=== PATIENT | male | born 1930 | race Caucasian/White ===

== ENCOUNTER 2018-03-08 12:22 | Inpatient (IN) | payer OTHER, MEDICARE ==
[~2018-03-08] VITALS: Ht 175.3 cm; Wt 88.5 kg
[2018-03-08 17:05] VITALS: BP 119/62
[2018-03-08] MEDS ORDERED: NORVASC5 M1 PO (17:36)
[2018-03-08] MEDS ORDERED: LOPRESSOR50 PO (17:37)
[2018-03-08] MEDS ORDERED: ZOFRAN ODT4 MG PO (17:37)
[2018-03-08] MEDS ORDERED: TIMOLOL GL0.5 %/5 M1 OPHTHALMIC (17:41)
[2018-03-08] MEDS ORDERED: KETOROLAC 0.5% E5 ML (17:42)
[2018-03-08] MEDS ORDERED: COZAAR 25 MG TA25 M1 PO (17:43)
[2018-03-08] MEDS ORDERED: GLUCOPHAGE1000 MG PO (17:44)
[2018-03-08] MEDS ORDERED: LIPITOR 20 MG T20 M1 PO (17:44)
[2018-03-08] MEDS ORDERED: ELIQUIS5 MG PO ×2 (17:45)
[2018-03-08] MEDS ORDERED: PACERONE 200 M200 M1 PO (17:45)
--- NOTE | 2018-03-08 19:00 | NUR ---
PT ADMITED TO REHAB ROOM 513 AT 1700 FROM [facility] WITH DX OF CVA LEFT SIDE WEAKNESS, HEMIANOPSIA. ALSO HAS HX OF HTN, AFIB, PRE DIABETIC. ON METFORMIN DAILY. ALERT AND ORIENTED X4, HAS LEFT SIDE WEAKNESS, TRANSFERED WITH 2 ASSIST. PHYSICIAN CONSULTS WERE CALLED. ADWOA REYES AND DR. ALVARENGA CAME TO SEE PT AND ASSESSED PT. ADMISSION MEDS RECONCILED AND VERIFIED WITH DR. ALVARENGA. REASSESSMENT PER CHART. PT C/O LEFT CHEST PAIN 09/24, HEADACHE /. CURRENTLY ON TYLENOL PRN AND ERIC ALSO GAVE ORDER FOR MELATONIN TO HELP PT TO SLEEP TONIGHT. SKIN ASSESSMENT. PICTURES TAKEN. NOTIFIED ERIC SHE SAID SHE WILL PUT CONSULT FOR WOUND NURSE. VSS ON RA. DISCUSSED WITH PT ABOUT REHAB SCHEDULED. PT ATE DINNER AND HAD BM TODAY BEFORE HE CAME. OFFERED SUPPORTIVE CARE. ENCOURAGE PT TO VOICE HIS NEEDS. PT'S GOALS ARE TO ABLE TO GET BETTER AND ABLE TO WALK AGAIN. ENCOURAGED PT TO WEAR SCD AT NIGHT TO PREVENT BLOOD CLOT. FALL PRECAUTION IN PLACE. GAVE REPORT TO NIGHT NURSE TO CONTINUE TO MONITOR.
[2018-03-08 19:37] VITALS: BP 141/68
--- NOTE | 2018-03-09 03:18 | NUR ---
assumed care at approx 1900 evening 03/08. pt lying in bed with head of bed elevated resting. pt appropriate and cooperative, denies complaints. pt took hs meds with water tolerating well. pt voiding per urinal at bedside. pt appears to be sleeping soundly with hourly rounding checks. bed alarm on and call light in reach. will continue to monitor.
[2018-03-09 04:11] LABS: MAGNESIUM 2.2 mg/dL (1.8-2.4); POTASSIUM 3.5 mmol/L (3.5-5.1)
[2018-03-09 04:16] LABS: CHOLESTEROL 106 mg/dL (<200); HDL CHOLESTEROL 44 mg/dL (>40); LDL CHOLESTEROL 50 mg/dL (<100); SERUM ASSESSMENT Clear; TC:HDL 2.4 Ratio (Not establshd); TRIGLYCERIDE 60 mg/dL (<150); VLDL 12 mg/dL (<40)
[2018-03-09 04:22] LABS: HEMATOCRIT 39.9 % (42.0-52.0); HEMOGLOBIN 13.9 gm/dL (14.0-18.0); MCH 34.8 pg (26.0-34.0); MCHC 34.8 g/dL (28.0-37.0); MCV 100.1 fL (80.0-100.0); RBC 3.98 mil/uL (4.50-6.00); RDW 14.3 % (10.5-14.5); WBC 7.2 thou/uL (4.0-11.0)
--- NOTE | 2018-03-09 08:15 | NUR ---
cm visited with pt this am, at bedside. pt is a & o x 3, with some forgetfulness, and pleasant. able to make his needs know. education on dcp, home health, and team meeting. pt reported " live home alone, 19 stairs with 1 side hand rail, don't check bs at home, still driving, manage own medication. 1 fall out of bed few weeks ago. ok with home health if needed. i am so weak and tired"/jose manuel. letting pt rest and will cont following as needed for dc needs.
[2018-03-09 10:17] VITALS: BP 150/83
--- NOTE | 2018-03-09 16:37 | NUR ---
ASSUMED CARE OF PT AT 0715. PT IS A&OX4. IS ON ROOM AIR. IS STABLE. DENIES PAIN. HAS LEFT SIDED WEAKNESS. IS ABLE TO LEFT ARM, BUT HAS LIMITED ROM. REPORTS PERIPHERAL DEFICITS. TRANSFERS WITH 1-2, MAX ASSIST, GB, STAND PIVOT. FALL PRECAUTIONS & HOURLY ROUNDING MAINTAINED. LABS & VITALS REVIEWED. PT IS CURRENTLY SLEEPING IN BED. CALL LIGHT WITHIN REACH. WILL CONTINUE TO MONITOR. PT HAS ACCU CHECKS ACHS. PT STATED, "I DON'T EAT MUCH". PT ONLY ATE BREAKFAST. REFUSED LUNCH. DAUGHTER IS AWARE & WAS AT BEDSIDE. FLUIDS ENCOURAGED. CONSENTS SIGNED & IS IN CHART. HOME EYE GTTS IN MED DRAWER.
[2018-03-09 19:06] LABS: GLYCOHEMOGLOBIN (HGB A1C) 5.9 % (4.8-5.6)
--- NOTE | 2018-03-09 19:26 | NUR ---
PT HOME EYE GTTS WERE SENT TO [facility] AND CONSENT ON LIFT. LIFT IS NOT WORKING. NOC NURSE AWARE.
[2018-03-09 20:05] VITALS: BP 118/71
--- NOTE | 2018-03-10 01:06 | NUR ---
PT ALERT AND ORIENTED X 4. VOIDS ADEQUATE AMTS CLEAR YELLOW URINE PER URINAL. LEFT SIDED WEAKNESS. PT TAKES MEDS WITH WATER WITHOUT DIFFICULTY. PT DENIES PAIN OR DISCOMFORT. BED ALARM ON FOR SAFETY. PT CHECKED ON HOURLY ROUNDS.
[2018-03-10 09:27] VITALS: BP 162/100
--- NOTE | 2018-03-10 14:01 | NUR ---
ASSUMED CARE AT 0700. PATIENT IS ALERT AND ORIENTED X4. PATIENT HAS LEFT SIDED WEAKNESS IN HIS LEFT LEG. PATIENT HAS LEFT UPPER FLACCIDITY. PATIENT HAS LEFT PERIPHERALVISION LOSS. LUNGS ARE CLEAR. ABD IS SOFT WITH BSX4. BMX3 TODAY. WILL CONTINUE TO HOLD LAXATIVES. FALL AND SAFETY PROTOCOLS IN PLACE. C/O BACK PAIN. PATIENT HAS VOLTARIN GEL FOR HIS BACK PAIN. CONTINUES TO PROGRES SLOWYLY TOWARD D/C GOALS. WILL CONTINUE TO MONITER.
--- NOTE | 2018-03-10 15:25 | NUR ---
DISCHARGE PLANNING: PATIENT'S DAUGHTER, NABILA LOPEZ, ASKED QUESTIONS ABOUT LENGTH OF STAY, AND DC PLAN. NOTED TO HER THAT THE TEAM WOULD MEET ON WEDNESDAY IN TEAM CONFERENCE TO DETERMINE A MORE SOLID DC PICTURE, BUT FOR NOW, OFFERED TO SHARE A TENTATIVE LENGTH OF STAY BASED ON DIAGNOSIS AND ADMIT FIM'S. SHE ASKED FOR A 'BALL-PARK' ESTIMATE, AND AFTER REVIEWING FIM AND ENTERING INTO THE SYSTEM, THE SUGGESTED LOS WAS 20 DAYS. NABILA STATED THAT THE PT LIVES ALONE IN A HOUSE WITH MANY STEPS WITHIN, AND WOULD NOT BE SAFE TO RETURN TO THAT PLACE, BUT FAMILY IS LOOKING INTO AL FACILITIES BOTH LOCAL AND IN THEIR DIFFERENT STATES. DTR STATED THAT SHE AND HER SIBLINGS ARE GOING TO BE LOOKING INTO WHAT THEIR OPTIONS ARE, AND THEY WILL NEED TO KNOW WHAT LEVEL OF CARE WE ANTICIPATE PT NEEDING IF ANY AFTER REHAB. SHE STATED THAT ALL OF THE PT'S CHILDREN WORK, THAT THE PT WOULD NOT BE RECEPTIVE TO A LIVE-IN 24/7 CAREGIVER, AND WAS HOPEFUL THAT AN AL WOULD BE APPROPRIATE AT [place]. NOTIFIED RAS LOPEZ, WHO WILL GIVE THEM INFORMATION ON LOCAL FACILITIES. ENCOURAGED DTR TO LOOK AT/TOUR FACILITIES FOR ASSISTED LIVING THAT ARE NEAR THEIR HOMES. GAVE THIS INFORMATION TO ECTOR UREÑA NP WELL.
--- NOTE | 2018-03-10 15:29 | NUR ---
cm notified by 5n unite complaint manager that daughter from [place] is here and had question rt dcp, [place], [place], because "family doesnt not want him going back home with all 19 steps at home, he just can not do them any more."/daughter. cm visited with camilo and daughter katarina at bedside, education on [place], [place], private duty, insurance does not cover, senior blue book and home health list choice provided " will check into this but he does not have means to cover if they are expensive and insurance doesn't cover them. well will talk as family, thank you"/katarina. will cont following as needed for dc needs.
[2018-03-10 20:05] VITALS: BP 129/79
--- NOTE | 2018-03-11 00:38 | NUR ---
PT ALERT AND ORIENTED X 4. LEFT SIDED WEAKNESS. VOIDS CLEAR YELLOW URINE PER URINAL. URINAL PLACED AND EMPTIED BY STAFF. BLOOD PRESSURE 129/79 AT HS. METOPROLOL HELD PER PARAMETERS. PT DENIES PAIN OR DISCOMFORT. BED ALARM ON FOR SAFETY. PT CHECKED ON HOURLY ROUNDS.
[2018-03-11 07:30] VITALS: BP 177/96
--- NOTE | 2018-03-11 09:19 | NUR ---
ASSUMED CARE AT 0700. B/P WAS 177/96 HR 62. GAVE SCHEDULED METOPROLOL AT 0800. RECHECK B/P AT 0900. B/P 136/92, HR 67. NOTIFIED ERIC SINCE LOSARTAN WAS NOT AVAILABLE AT 0800. ERIC REQUESTS TO HOLD LOSARTAN. PATIENT IS ALERT AND ORIENTED X3. FORGETFUL. PATIENT HAS LEFT SIDED WEAKNESS IN HIS LEFT LEG. PATIENT HAS LEFT UPPER FLACCIDITY. PATIENT HAS LEFT PERIPHERALVISION LOSS. LUNGS ARE CLEAR. ABD IS SOFT WITH BSX4. LAST BM WAS YESTERDAY. HELD MIRALAX THIS AM. FALL AND SAFETY PROTOCOLS IN PLACE. C/O BACK PAIN 8/10, HEADCHE 6/10 EARLIER. GAVE PRN HYDROCODONE. PAIN IS 5/10 NOW. PATIENT HAS VOLTARIN GEL FOR HIS BACK PAIN EALIER. CONTINUE TO TURN Q2HR WHILE IN BED. OFFERED SUPPORTIVE CARE. ENCOURAGED PT TO VOICE HIS NEEDS. LABS REVIEWED. REASSESSMENT PER CHART. MEDS GIVEN ORDER AND CONTINUE TO MONITOR B/P. CONTINUES TO PROGRESS SLOWYLY TOWARD D/C GOALS. WILL CONTINUE TO MONITOR.
[2018-03-11 20:22] VITALS: BP 131/75
--- NOTE | 2018-03-12 02:18 | NUR ---
assumed care at approx 1900 evening 03/11. pt sitting up in dining room at change of shift in w/c. pt assisted into bed and gown assist. pt sleeping soundly with hourly rounding checks. bed alarm instructional support services director light in reach. will continue to monitor.
[2018-03-12 07:30] VITALS: BP 175/96
[2018-03-12 14:00] VITALS: BP 138/76
--- NOTE | 2018-03-12 16:44 | NUR ---
ASSUMED CARE AT 0700. B/P WAS 175/96, HR 60 THIS AM. MORNING MEDS GIVEN. TOOK MEDS WITH APPLE SAUCE. PT ORIENTED X3. FORGETFUL. PATIENT HAS LEFT SIDED WEAKNESS IN HIS LEFT LEG. PATIENT HAS LEFT UPPER FLACCIDITY. PATIENT HAS LEFT PERIPHERALVISION LOSS. LUNGS ARE CLEAR. ABD IS SOFT WITH BSX4. HAD SOFT BM TODAY. HELD MIRALAX FALL AND SAFETY PROTOCOLS IN PLACE. C/O BACK PAIN 8/10 EARLIER. GAVE PRN 1/2 TAB HYDROCODONE. PAIN IS 5/10 NOW. PATIENT HAS VOLTARIN GEL FOR HIS BACK PAIN EALIER. PT IS STILL DROWSY. NOTIFIED WHO CAME AND ASSESS PT AND ORDERD FOR EKG AND TROPONIN. RESULTS NOTIFIED COLETTE RESULT. NO INDICATE OF CHEST PAIN. RECEIVED ORDER TO D/C NORCO AND CHANGE TO TRAMADOL. AND MAKE SOME CHANGE ABOUT MEDICATIONS FOR PT NEEDS. TREATMENT DISCUSSED WITH FAMILY. CONTINUE TO TURN Q2HR WHILE IN BED. PT HAD BM TODAY. OFFERED SUPPORTIVE CARE. ENCOURAGED PT TO VOICE HIS NEEDS. LABS REVIEWED. REASSESSMENT PER CHART. MEDS GIVEN ORDER AND CONTINUE TO MONITOR B/P. B/P IS 138/76, HR 58. CONTINUES TO PROGRESS SLOWYLY TOWARD D/C GOALS. WILL CONTINUE TO MONITOR.
[2018-03-12 17:39] LABS: URINE BILIRUBIN NEGATIVE (Negative); URINE BLOOD NEGATIVE (Negative); URINE CLARITY CLEAR; URINE COLOR YELLOW; URINE GLUCOSE-RANDOM* NEGATIVE (Negative); URINE KETONES NEGATIVE (Negative); URINE LEUKOCYTES-REFLEX NEGATIVE (Negative); URINE NITRITE-REFLEX NEGATIVE (Negative); URINE PROTEIN (DIPSTICK) NEGATIVE (Negative); URINE UROBILINOGEN 0.2 E.U./dl (0.2-1.0)
[2018-03-12 19:35] VITALS: BP 108/66
--- NOTE | 2018-03-13 01:58 | NUR ---
assumed care at approx 1900 evening 03/12. pt alert and oriented x4, appropriate and cooperative sitting at dining table at change of shift visiting with family. pt wanted to get to bed shortly after family left and has been sleeping soundly. pt took hs meds with water tolerating well. bed alarm on and call light in reach. will continue to monitor.
[2018-03-13 09:30] VITALS: BP 112/65
--- NOTE | 2018-03-13 11:51 | NUR ---
ASSUMED PT CARE AT 0700. ASSESSMENT COMPLETE AD IS CHARTED AT 0930. VITAL SIGNS STABLE. PT FOUND SLEEPING IN BED WITH BREAKFAST UNTOUCHED. WOKE PT TO FINISH EATING. PT ALERT/ORIENTED X4. REPORTS BACK PAIN RATED 6/10. STATES TRAMDOL DOES NOT HELP AND REFUSES MEDICATION AT THIS TIME. HEMIPALEGIA NOTED TO LEFT SIDE. PT IS ABLE TO RAISE ARM AND LEG, BUT IS WEAK. NO OTHER CONCERNS AT THIS TIME. WILL CONTINUE WITH CURRENT CARE.
--- NOTE | 2018-03-13 16:27 | NUR ---
PT DOING BETTER THIS AFTERNOON. MORE AWAKE THAN THIS MORNING. GOT PT UP TO CHAIR WITH MAX 2 PERSON ASSIST. PT REPORTS HAVING NO APPETITE; NOTHING LOOKS GOOD AND EVERYTHING IS BLAND. PT UNABLE TO HAVE REAL SALT HE IS ON CARDIAC DIET. FAMILY BROUGHT SALT SUBSTITUTE AND SALAD FOR PT WHICH HE ATE ABOUT HALF OF. PT SEEMS IN BETTER SPIRITS THIS AFTERNOON AFTER GETTING SOME FOOD AND VISITING FAMILY. WILL CONTINUE MONITOR AND CURRENT CARE.
[2018-03-13 19:28] VITALS: BP 105/60
--- NOTE | 2018-03-13 19:33 | HC ---
[facility] [place] [address] CONSULTATION Name: DEBBIE BANUELOS Room #: 513-P ADM IN M.R.#: [id number] Admission: 03/08/18 Attend Phys: Milton Mitchell MD Discharge: Date of : 07/28/[birth year] Report #: [id number] THIS REPORT FOR: //name// CC: Milton Camacho DATE OF SERVICE: 03/12/2018 Neurobehavioral Status Exam ATTENDING PHYSICIAN: Milton Mitchell MD SEWING MACHINE OPERATOR SEMIAUTOMATIC: Angel Luis Fox, PhD CLINICAL PRESENTATION: The patient is an 87-year-old male admitted to the rehabilitation unit at [facility] for comprehensive inpatient rehabilitation program to improve functional mobility, activities of daily living and self-care and mental status secondary to a right parietal occipital CVA. He presents with a left hemiparesis, left homonymous hemianopsia, left-sided kenyon-inattention, non-ST elevation myocardial infarction, mild rhabdomyolysis, hypertension, hyperlipidemia, history of paroxysmal atrial fibrillation and peripheral artery disease with history of abdominal aortic aneurysm. The patient reports being at his home when he fell off his bed. A female peer could not reach him and subsequently went to the house and then required emergency services for transfer to the hospital. He is reported to have been down approximately 6 hours. Neuropsychological consultation was requested to provide assistance in the assessment of cognitive and emotional status and to provide recommendations and services. Prior to his most recent admission, he was living independently in his own home. His from cancer about 5 years ago. The patient was independent with instrumental activities of daily living and driving. He is a high school graduate. 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 He has three children that are reported as supportive, but do not live within his same proximity. TECHNIQUES UTILIZED: Clinical interview, review of medical records, staff consultation and behavioral observation, Mini-Mental Status Exam 2 standard version, family interview. EXAMINATION FINDINGS: His functioning during the assessment was very poor. The use of narcotic pain medication was reported to have been administered and likely contributed to a [facility] [address] [place] [address] CONSULTATION Name: BANUELOSDEBBIE Room #: 513-P [facility] IN M.R.#: [id number] Admission: 03/08/18 Attend Phys: Milton Mitchell MD Discharge: Date of : 07/28/30 Report #: [id number] temporary deterioration in functioniong. The patient required encouragement to maintain alertness during the assessment. He often had his eyes closed and required encouragement to open them. He does present with a severe left neglect. He reports symptoms to include memory, word finding, anxiety, depression and difficulty with appetite and sleep. Pain in his stomach is also reported. He does not have a history of prior treatment for depression or anxiety. There is also no report of previous alcohol use. However, the patient is reporting significant symptoms suggesting depression and anxiety at this time. His performance on the MMSE 2 brief version is extremely low with a raw score of 8 of 16. He was 3/3 for initial registration, 3/5 for orientation to time, 3/[address] and 0/3 for immediate recall of 3 items after a brief time delay and distraction. Performance on the MMSE 2 standard version is extremely low with a raw score of 16 of 30. He was 0/5 for serial 7s, 2/2 for naming, 1/1 for repetition, 3/3 for auditory comprehension. He could read and follow a single command when the stimulus is within his visual field. The patient required encouragement to move his head in the direction visual stimulation. He did not spontaneously attempt to find the target. He is somewhat passive and taking less initiative at this time. He was able to dictate a sentence. The patient does describe continued sadness over the loss of his . At this time, the patient is presenting with severe cognitive deficits that are likely associated with delirium. Decreased initiative and symptoms of anxiety and depression are suggested. 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 RECOMMENDATIONS: The patient will require continual encouragement to maintain attention in the appropriate visual field. He is not taking initiative at this time. Encouragement to take initiative when necessary that includes calling for nursing and therapy assistance when necessary. The patient may benefit from antidepressant medication, example Remeron, to both assist with sleep at night, as well as improve appetite. Verbal praise and complements about participation in therapies will also be of benefit. Additionally, it is necessary to arrange objects in the room to be within his field of vision. [address] [address] CONSULTATION Name: DEBBIE BANUELOS Room #: 513-P [facility] IN .R.#: [id number] Admission: 03/08/18 Attend Phys: Milton Mitchell MD Discharge: Date of : 07/28/[birth year] Report #: [id number] Thank you very much for allowing me to provide the consultation on this patient. <ELECTRONICALLY SIGNED> By: Angle Luis Fox, PhD 03/13/18 1933 [id number] 0151 Angel Luis Fox, PhD /nt
--- NOTE | 2018-03-14 02:24 | NUR ---
PT ALERT AND ORIENTED X 4. VOIDING ADEQUATE AMTS PER URINAL. NEEDS ASSISTANCE WITH URINAL PLACEMENT. LEFT SIDED WEAKNESS. PT C/O LEFT SIDED CHEST PAIN. STATED HE FELL ON THAT SIDE WHEN HE HAD HIS STROKE AND IT HAS BEEN PAINFUL EVER SINCE. TRAMADOL NOT GIVEN SINCE DAY NURSE STATED TRAMADOL KNOCKED HIM OUT TOO MUCH. MELATONIN GIVEN AT HS FOR SLEEP. PT APPEARS TO BE SLEEPING ON HOURLY ROUNDS.
[2018-03-14 07:45] VITALS: BP 98/59
--- NOTE | 2018-03-14 08:41 | EKG ---
[place] [address] [facility] [place] [address] ELECTROCARDIOGRAM REPORT Name: DEBBIE BANUELOS Room #: 513-P ADM IN M.R.#: [id number] Admission: 03/08/18 Attend Phys: Milton Mitchell MD Discharge: Date of : 07/28/30 Report #: [id number] THIS REPORT FOR: //name// [facility] Test Date: 2018-03-12 Test Time: 15:41:34 Pat Name: DEBBIE BANUELOS Department: Room: 513 P Gender: M Artificial Cherry Maker: : 1930 Requested By: Esdras Singh Order Number: [id number] MD: Dheeraj Beckett Measurements Intervals [place] Rate: 62 P: 38 DE: 280 QRS: -20 QRSD: 156 T: -13 QT: 496 QTc: 504 Interpretive Statements Sinus rhythm Prolonged DE interval Right bundle branch block No previous ECG available for comparison Electronically Signed On 03-14-2018 8:41:05 MANAGER OF DISASTER RECOVERY by Dheeraj Beckett [email or web address] <ELECTRONICALLY SIGNED> By: Dheeraj Beckett MD, [facility] 03/14/18 0841 [id number] Dheeraj Beckett MD, FACC /EPI
--- NOTE | 2018-03-14 19:02 | NUR ---
ASSUMED CARE AT APPROX 0715. PATIENT A/O X4. DENIES PAIN. LEFT HEMIPARESIS. UP TO WC FOR MEALS. ST CONSULTED FOR DYSPHAGIA. PATIENT C/O URGENCY, INABILITY TO VOID. PVR SHOWED 120 ML OUT, 130 ML RETAINED. PATIENT UP X MAX ASSIST OF 2 PERSONS FOR TRANSFERS AND TOILETING, EVEN WITH URINAL. FALL PRECAUTIONS IN PLACE. PATIENT'S FAMILY MEMBER AT BEDSIDE. PATIENT UP IN RECLINER AFTER DINNER. FALL PRECAUTIONS IN PLACE. RESTING IN ROOM AT CHANGE OF SHIFT.
[2018-03-14 20:35] VITALS: BP 136/86
--- NOTE | 2018-03-15 01:33 | NUR ---
PT ALERT AND ORIENTED X 4. VOIDS SMALL AMTS CLEAR YELLOW URINE PER URINAL. INCONT OF URINE AT TIMES ALSO. VOIDED 50 ML URINE AT 2230. BLADDER SCAN 135 AT THAT TIME. LEFT SIDED WEAKNESS. PT TOOK HS MEDS WITH WATER WITHOUT DIFFICULTY. NO COUGHING NOTED. PT C/O PAIN IN LEFT CHEST. TYLENOL GIVEN ORDERED. BED ALARM ON FOR SAFETY. PT CHECKED ON HOURLY ROUNDS.
--- NOTE | 2018-03-15 06:00 | NUR ---
INCONT OF URINE IN LARGE AMT. BLADDER SCAN 255.
[2018-03-15 08:19] VITALS: BP 113/71
--- NOTE | 2018-03-15 12:39 | NUR ---
team meeting, recommendation, re team , possible dc 03/28/18.
--- NOTE | 2018-03-15 12:41 | NUR ---
team meeting, recommendation : re team, dme drop arm commode, wheel chair with lap board, and shower chair, and home health at [place]. current diet puree with honey thick. ok for daughter, son in law and son who spends night some times is a transfer pt from bed to wheel
--- NOTE | 2018-03-15 15:24 | NUR ---
ASSUMED PT CARE AT 0700. NIGHT RN BS EARLIER PT HAD 225 CC. PT REQUESTED TO ASSISTED TO BSC. HAD 300CC CLEAR URINE OUT, BS O AT THIS MOMENT. OBTAINED ORDER TO D/C BS. PT ALERT AND ORIENTED X 3 FORGETFUL. LEFT SIDED WEAKNESS. UP WITH MAX ASSIST. PT TOOK HS MEDS WITH WATER WITHOUT DIFFICULTY. NO COUGHING NOTED. PT C/O PAIN IN LEFT CHEST. NOTIFIED ERIC TO INCREASE TYLENOL TO 1000MG. GIVEN ORDERED. PT HAD 2X LOOSE BM. WILL ASK ON COMING NURSE TO HOLD COLACE. PT CHECKED ON HOURLY ROUNDS. PT UP TO DINNING ROOM FOR MEALS. ST DOWN GRADE PT TO [facility] SOFT TO HELP WITH CHEWING. MOVE PT TO ROOM TO [facility] FOR BETTER BATHROOM AND FOR ANOTHER PATIENT WHO NEEDS CLOSE OBSERVATION. FAMILY WAS NOTIFIED. PT IS OK TO MOVE. FALL PRECAUTION IN PLACE. BED/CHAIR ALARM USES. CALL LIGHT WITHIN REACH. CHECK PT FREQUENTLY FOR NEEDS AND SAFETY.
[2018-03-15 20:16] VITALS: BP 150/80
--- NOTE | 2018-03-16 04:41 | NUR ---
REPOSITIONING SELF IN BED. USING URINAL WITH VERY LITTLE SPILLAGE. APPRECIATES FRESH PAD AND GABO-CARE. STATES LEFT ARM PAIN SINCE CVA AND APPRECIATES TRAMADOL FOR IT.
[2018-03-16 07:30] VITALS: BP 146/85
--- NOTE | 2018-03-16 14:13 | NUR ---
Patient participated in community reintegration on 03/16/18 with Speech Therapy. Refer to documentation by
--- NOTE | 2018-03-16 15:00 | NUR ---
mynor manage visited with pt daughter katarina and pt rt family question. pt and family planning on taking him to [place] either assisted living vs skilled. if pt goes snf in [place] will dc 11th and if family found him assisted living he will dc week later. he will need new pcp for hh if goes al. cm passed on to family that there is [facility] here and in [place], liaison might be able to answer question for her up here. will cont following as needed for dc needs.
--- NOTE | 2018-03-16 16:37 | NUR ---
Pt PARTICIPATED IN COMMUNITY REINTEGRATION ACTIVITY WITH ST ON 03/16/18. PLEASE REFER TO ST DOCUMENTATION.
--- NOTE | 2018-03-16 17:00 | NUR ---
ASSUMED CARE AT APPROX 0715. PATIENT A/O X3. FORGETFUL AT TIMES, SLOW TO RESPOND, NEEDING INSTRUCTIONS REPEATED MODERATELY. VSS. L HEMIPARESIS NOTED. PARTICIPATING IN THERAPY. VOLTAREN GEL APPLIED TO LEFT ARM/SHOULDER AND TO BACK. KETOROLAC EYEDROPS CHANGED TO PRN FOR PAIN. FALL PRECAUTIONS IN PLACE. PATIENT UP IN WHEELCHAIR BETWEEN THERAPIES. WILL CONTINUE TO MONITOR.
[2018-03-16 19:15] VITALS: BP 137/80
--- NOTE | 2018-03-17 04:01 | NUR ---
assumed care at approx 1900 evening 03/16. pt lying in bed with head of bed elevated dozing off and on. pt assisted up to w/c to bathroom to void before hs. pt took hs meds with water tolerating well. pt appears to be sleeping soundly with hourly rounding checks. bed alarm on and call light in reach. will continue to monitor.
[2018-03-17 06:49] LABS: ABSOLUTE NEUTROPHILS 4.1 thou/uL (1.4-8.2); BASOPHILS 1.3 % (0.0-2.0); EOSINOPHILS 3.6 % (0.0-3.0); HEMATOCRIT 39.1 % (42.0-52.0); HEMOGLOBIN 13.3 gm/dL (14.0-18.0); LYMPHOCYTES 30.5 % (24.0-44.0); MCH 33.9 pg (26.0-34.0); MCHC 34.1 g/dL (28.0-37.0); MCV 99.4 fL (80.0-100.0); MONOCYTES 9.4 % (1.0-8.0); PLATELET COUNT 166 thou/uL (150-400); POLYS 55.2 % (36.0-66.0); RBC 3.94 mil/uL (4.50-6.00); RDW 14.2 % (10.5-14.5); WBC 7.4 thou/uL (4.0-11.0)
[2018-03-17 07:10] LABS: MAGNESIUM 1.6 mg/dL (1.8-2.4); POTASSIUM 3.8 mmol/L (3.5-5.1)
[2018-03-17 08:34] VITALS: BP 136/76
[2018-03-17 19:45] VITALS: BP 142/79
--- NOTE | 2018-03-17 19:56 | NUR ---
ASSUMED CARE AT APPROX 0715. PATIENT A/O X4. C/O PAIN IN MID-LOWER BACK AND LEFT ARM AND SHOULDER. VOLTAREN GEL APPLIED. PATIENT DENIED NEED FOR OTHER PAIN MEDS. UP X1 MAX ASSIST. PARTICIPATED IN THERAPY. VSS. LABS REVIEWED. MAGNESIUM REPLACED PER ORDRES. FALL PRECAUTIONS IN PLACE. PATIENT UP TO WC FOR MEALS. RESTING IN HIS ROOM, DAUGHTER AND SON-IN-LAW AT BEDSIDE AT CHANGE OF SHIFT.
--- NOTE | 2018-03-18 02:58 | NUR ---
VOIDING PER URINAL WITH STAFF HELPING TO KEEP IT IN PLACE. VOLTAREN GEL TO LEFT SHOULDER HELPFUL FOR PAIN.
[2018-03-18 09:20] VITALS: BP 148/86
--- NOTE | 2018-03-18 11:58 | NUR ---
Nutrition: pt admit to rehab unit with parieto-occipital CVA and seen due to LOS on rehab unit. Pt reports stable weights. Intake if good, eats most of meals. Followed by ST, requires mechanically altered chopped diet. Low risk.
--- NOTE | 2018-03-18 15:36 | NUR ---
ASSUMED CARES AT 0700. PT ALERT AND ORIENTED *4. C/O LOW BACK, LEFT CHEST (NON-CARDIAC) AND LEFT SHOULDER PAIN, VOLTAREN GEL APPLIED AND PT STATED THAT THERE WAS A DECREASE IN PAIN. VITALS REMAINED STABLE. PT CONTINUES TO HAVE LEFT SIDED WEAKNESS, ABLE TO MOVE EXTREMITY. TOE LACERATION ON LEFT LEG HEALING, CLEANED AND LEFT SHELVER. PT UP WITH 1 PERSON PIVOT TRANSFERS AND TOLERATED WELL. Q1H VISUAL CHECKS. CALL LIGHT WITHIN REACH. FALL PRECAUTIONS IN PLACE
[2018-03-18 19:53] VITALS: BP 119/47
--- NOTE | 2018-03-19 05:07 | NUR ---
TURNING SELF FROM SIDE TO SIDE. CALLS FOR ASSIST WITH URINAL, ONCE WHILE STANDING (HE LEANED A LOT). INCONTINENT ONCE DUE TO URGENCY. APPRECIATES VOLTAREN GEL TO LEFT SHOULDER
[2018-03-19 08:46] VITALS: BP 137/77
--- NOTE | 2018-03-19 14:42 | NUR ---
ASSUMED CARES AT 0700. PT ALERT AND ORIENTED*4, VERY SLEEPY, FALLING ASLEEP DURING BREAKFAST. VITALS REMAINED STABLE. LEFT MIDDLE TOE HEALING, SITE CLEANED AND LEFT RUBY. CONTINUES TO HAVE MILD BLE EDEMA. CONTINUES TO HAVE LEFT SIDED WEAKNESS AND LEANS ON THE LEFT SIDE. UP WITH 1 PERSON MIN ASSISTED. Q1H VISUAL CHECKS. CALL LIGHT WITHIN REACH. FALL PRECAUTIONS IN PLACE
[2018-03-19 19:42] VITALS: BP 131/65
[2018-03-19 21:04] VITALS: BP 118/60
--- NOTE | 2018-03-20 04:09 | NUR ---
assumed care at approx 1900 evening 03/19. pt lying in bed with head of bed elevated at change of shift dozing off and on. pt assisted with voiding in urinal and pt also incontinent of urine on pants. assisted with changing at hs. pt took hs meds with water tolerating well. pt appears to be sleeping soundly with hourly rounding checks. bed alarm on and call light in reach. will continue to monitor.
[2018-03-20 08:14] VITALS: BP 139/79
--- NOTE | 2018-03-20 16:00 | NUR ---
ASSUMED CARES AT 0700. PT AWAKE, ALERT AND ORIENTED*4 BUT FORGETFUL. C/O LEFT SHOULDER PAIN, VOLTAREN GEL APPLIED. VITALS REMAINED STABLE. PT CONTINUES TO HAVE LEFT SIDED WEAKNESS, TRANSFERS WITH 1 PERSON MIN ASSIST AND TOLERATES WELL. DIARRHEA NOTED *1 TODAY, ALL STOOL SOFTENORS AND LAXATIVES WITHHELD. PT SLEEPING THIS AFTERNOON AFTER A VISIT WITH FAMILY. Q1H VISUAL CHECKS. CALL LIGHT WITHIN REACH. FALL PRECAUTIONS IN PLACE
[2018-03-20 19:56] VITALS: BP 129/77
--- NOTE | 2018-03-21 00:20 | NUR ---
PT ALERT AND ORIENTED X 4. LEFT SIDED WEAKNESS. VOIDING PER URINAL WITH ASSISTANCE PLACING URINAL. PT C/O PAIN IN LEFT CHEST AND SHOULDER. TRAMADOL GIVEN AT HS AND PT VERBALIZED ADEQUATE PAIN RELIEF. BED ALARM ON FOR SAFETY. PT APPEARS TO BE SLEEPING ON HOURLY ROUNDS.
[2018-03-21 07:51] VITALS: BP 124/77
--- NOTE | 2018-03-21 16:32 | NUR ---
ASSUMED CARE AT APPROX 0715. PATIENT A/O X4. DENIES PAIN. C/O INCREASED WEAKNESS IN LEFT MEDICAL REFERRAL COORDINATOR. INSPECTOR BRAKE LINING ASSESSED, NO DISTINCTIVE WEAKNESS NOTED FROM LEFT VS. RIGHT. NO FACIAL DROOP. VSS. PATIENT HELD OUT BOTH ARMS FOR SEVERAL SECONDS, NO DRIFT NOTED. PROVIDER NOTIFIED. NO FURTHER COMPLAINTS. PATIENT PARTICIPATED IN THERAPY. FALL PRECAUTIONS IN PLACE. RESTING IN BED BEFORE DINNER. WILL CONTINUE TO MONITOR.
[2018-03-21 19:15] VITALS: BP 133/85
--- NOTE | 2018-03-22 01:05 | NUR ---
PT ALERT AND ORIENTED X 4. LEFT SIDED WEAKNESS. VOIDS PER URINAL WITH ASSIST X 1. DENIES PAIN OR DISCOMFORT. BED ALARM ON FOR SAFETY. PT APPEARS TO BE SLEEPING ON HOURLY ROUNDS.
--- NOTE | 2018-03-22 07:57 | NUR ---
ASSUMED CARE AT 0700. PATIENT IS ALERT AND ORIENTED X4. PATIENT HAS LEFT SIDED WEAKNESS. LUNGS ARE CLEAR. ABD IS SOFT WITH BSX4. UP WITH WALKER AND GAIT BELT TO AMBULATE. FALL AND SAFETY PROTOCOLS IN PLACE. DENIES ANY PAIN. HAS GENERALIZED PAIN IN LEFT SHOULDER AT TIMES. NO PAIN NOTED AT THIS TIME. CONTINUES TO PROGRESS SLOWLY TOWARDS D/C GOALS. WILL CONTINUE TO MONITER.
[2018-03-22 08:10] VITALS: BP 107/73
--- NOTE | 2018-03-22 09:56 | H ---
[facility] [place] [address] HISTORY AND PHYSICAL Name: DEBBIE BANUELOS Room #: 503-P ADM IN M.R.#: [id number] Admission: 03/08/18 Attend Phys: Milton Mitchell MD Discharge: Date of : 07/28/[birth year] Report #: [id number] THIS REPORT FOR: //name// CC: Milton Camacho DATE OF SERVICE: 03/08/2018 HISTORY AND PHYSICAL/POST-ADMISSION PHYSICIAN EVALUATION HISTORY OF PRESENT ILLNESS: The patient is an 87-year-old white male originally admitted to [facility] on 03/05/2018 for fatigue and left-sided weakness. He underwent an MRI, which showed large area of restricted diffusion right parietal occipital area. This diagnosed with a CVA right parietal occipital area. Carotid Dopplers showed mild plaquing right proximal internal carotid artery. Notes no hemodynamically significant stenosis. He is noted to have paroxysmal atrial fibrillation, non-ST elevation AL and there was a note of some mild recent rhabdomyolysis. He was not given any TPA as he was out of the window. He has been transferred now to the inpatient rehabilitation herrera at [facility] for acute in-hospital inpatient rehabilitation. PAST MEDICAL HISTORY: Includes hypertension, hyperlipidemia, peripheral arterial disease, abdominal aortic aneurysm, atrial fibrillation, prediabetic, prostate cancer, glaucoma. PAST SURGICAL HISTORY: Includes cholecystectomy, prostatectomy, glaucoma surgery. MEDICATIONS: Please see the full medication listing. This includes vitamins, herbals, and supplements. ALLERGIES: No known drug allergies. 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 He does have 3 children that are out of town. He has a lady friend that lives a couple of miles away. DIET: Cardiac diet. REVIEW OF SYSTEMS: No complaints of chest pain, shortness of breath, abdominal discomfort. No complaints of focal extremity pain complaints. Notes weakness of the left side upper and lower extremity. Denies any swallowing problems. Notes visual problems. PHYSICAL EXAMINATION: [facility] [address] [place] [address] HISTORY AND PHYSICAL Name: BANUELOSDEBBIE Room #: 503-P [facility] IN ..#: [id number] Admission: 03/08/18 Attend Phys: Milton Mitchell MD Discharge: Date of : 07/28/[birth year] Report #: [id number] GENERAL: The patient is a pleasant 87-year-old white male who appeared somewhat younger than stated age. HEENT: Appeared to be benign. Cranial nerves grossly intact. Facies are symmetric. VITAL SIGNS: Last recorded temperature 98, pulse 56, respirations 20, blood pressure 141/68. NEUROLOGIC: He is alert, follows basic 1 step commands. He has a definite dense left homonymous hemianopsia. Some depressed left nasolabial fold. CHEST: Sounded clear to auscultation. CARDIOVASCULAR: Appeared regular rate. ABDOMEN: Bowel sounds positive, nontender. GENITOURINARY: Deferred. RECTAL: Deferred. EXTREMITIES: He has functional range of motion of the right upper and right lower extremity without obvious focal weakness. DTRs are 1. He has left upper extremity weakness with decreased tone 2+ to 3- left lower extremity, also decreased tone and strength 2+ to 3-. He has some decreased sensation in the left upper and left lower extremity. He has been needing significant assistance with basic functional mobility skills. Has been mod assist for basic transfers noted. This was prior to his admission to the rehab herrera. IMPRESSION: An 87-year-old right-handed white male with the following problem list: 1. Right parietal occipital cerebrovascular accident. 2. Left-sided hemiparesis. 3. Left homonymous hemianopsia. 4. Left-sided kenyon-inattention. 5. Non-ST elevation myocardial infarction. 6. Mild rhabdomyolysis. 7. Hypertension. 8. Hyperlipidemia. 9. History of paroxysmal atrial fibrillation. 10. Peripheral arterial disease with history of abdominal aortic aneurysm. PLAN: The patient is admitted for acute in-hospital inpatient rehabilitation. From a postadmission physician evaluation perspective, there are no relevant changes since the preadmission screening. Please see the above review of prior and current medical and functional conditions and comorbidities. Please see the patient's previous and current functional status. As far as risk of complications, the patient has multiple medical comorbidities as noted above. The initial plan of care involves the interdisciplinary acute inpatient rehabilitation program with goal of maximizing the patient's functional independence, so that he can hopefully turned back to his prior living situation. Measurable functional goals would be for him to improve as far as basic transfers, mobility, ADLs as well as visual perceptual abilities, cognition, so he can return back to the home setting. Prognosis is reasonably [address] [address] HISTORY AND PHYSICAL Name: DEBBIE BANUELOS Room #: 503-P [facility] IN M.R.#: [id number] Admission: 03/08/18 Attend Phys: Milton Mitchell MD Discharge: Date of : 07/28/[birth year] Report #: [id number] good with estimated length of stay probably at least 3 weeks. Potential barriers would include his multiple medical comorbidities and decreased functional status. <ELECTRONICALLY SIGNED> By: Milton Mitchell MD 03/22/18 0956 [id number] Milton Mitchell MD /nt
--- NOTE | 2018-03-22 09:56 | PLAN ---
[facility] [place] [address] REHAB UNIT PLAN OF CARE Name: DEBBIE BANUELOS Room #: 503-P ADM IN M.R.#: [id number] Admission: 03/08/18 Attend Phys: Milton Mitchell MD Discharge: Date of : 07/28/[birth year] Report #: [id number] THIS REPORT FOR: //name// CC: Milton Camacho DATE OF SERVICE: 03/11/2018 PROGRESS NOTE/OVERALL PLAN OF CARE SUBJECTIVE: The patient is seen back today in followup. He was in no distress. Last recorded temperature 97.8, pulse 71, respirations 18, blood pressure 129/79. Transfers are max assist. Gait is max assist x 2, 8 feet in parallel bars. Working on active assisted range of motion. He does have moderate cognitive deficits with moderate memory. ASSESSMENT: 1. Right parietal occipital cerebrovascular accident. 2. Left-sided hemiparesis. 3. Left homonymous hemianopsia. 4. Left-sided kenyon-attention. 5. Non-ST elevation myocardial infarction. 6. Mild rhabdomyolysis. 7. Hypertension. 8. Hyperlipidemia. 9. History of paroxysmal atrial fibrillation. 10. Peripheral arterial disease with history of abdominal aortic aneurysm. PLAN: The overall plan of care is based on the preadmission screen, post-admission physician evaluation and information garnered from therapy assessments. 1. Estimated length of stay is probably at least 3 weeks. 2. Medical prognosis is reasonably good. 3. Anticipated interventions includes the interdisciplinary acute inpatient rehabilitation program with PT and OT, speech, rehabilitation nursing assisting regarding medication management, skin care prophylaxis, bowel and bladder issues, and nursing education. We are having the multiple toy consultant physicians continue to follow. 4. Anticipated functional outcomes would be for the patient to become modified independent with transfers, mobility, and ADLs, so that he can return back to the home setting. Initial plan for him to be as independent as possible at the wheelchair level. 5. Discharge destination is living alone. Ambulated without a device, split level. We will need to further assess additional care for him as he gets closer to discharge. 6. Expected therapy by discipline includes PT, OT and speech 1 hour per day [address] [address] REHAB UNIT PLAN OF CARE Name: DEBBIE BANUELOS Room #: 503-P ADM IN ..#: [id number] Admission: 03/08/18 Attend Phys: Milton Mitchell MD Discharge: Date of : 07/28/[birth year] Report #: [id number] each 5 days a week throughout the duration of the acute inpatient rehabilitation stay. <ELECTRONICALLY SIGNED> By: Milton Mitchell MD 03/22/18 [id number] Milton Mitchell MD /PMT
--- NOTE | 2018-03-22 13:23 | NUR ---
team meeting recommendation :re team, dcp 11th vs 18th. q 2 hr checks, life alert button, medication management , fww, assisted living, cont to upgrade diet as orders, assist with bathing supervision. will discussion with family assisted living assessment, neuro ophth outpt.
[2018-03-22 19:07] VITALS: BP 129/67
--- NOTE | 2018-03-23 03:54 | NUR ---
assumed care at approx 1900 evening 03/22. pt sitting up in dining room at change of shift resting. pt back to room and given po meds at hs. pt assisted with urinal tonight standing at bedside with walker with help. pt appears to be sleeping soundly with hourly rounding checks. bed alarm on and call light in reach. will continue to monitor.
[2018-03-23 07:50] VITALS: BP 142/89
--- NOTE | 2018-03-23 08:54 | NUR ---
FAXED REFERRAL TO [facility] SPOKE WITH MAINE IN ADM. SHE REVIEWED AND CANNOT ACCEPT THEY ARE AT CAPACITY WITH MEDICAID. NOTIFIED [facility] OF REFERRAL SPOKE WITH BETH IN ADM. SHE WILL REVIEW. PT IS NEEDING RN ONLY. ANTICIPATE DC 03/25. DCP TO FOLLOW.
--- NOTE | 2018-03-23 14:15 | NUR ---
ASSUMED CARE AT SHIFT CHANGE. PT A/O X 4, CALM PLESANT THROUGHOUT THE DAY. ASSESSMENTS PER CHART. LABS NOTED. PT HAD GOOD ENDURANCE WORKING WITH THERAPY TODAY, ALTHOUGH PT DID WANT TO LIE DOWN FOR A NAP AFTER. PROGRESSING WELL TOWARDS POC GOALS. WILL CONT TO MONITOR AND INTERVENE PRN
--- NOTE | 2018-03-23 14:32 | NUR ---
cm received phone call from pt son called stated " need paper work sent to [facility] in [facility], # [phone], tatiana, alfa, and pepper. they will need video of how my dad is doing"/son. education that will check into the video with hospital rt hippa rules. " ok thank you they only have 1 room open and not going to [place] rt finances"/son. cm called spoke with crescencio pabon who stated please fax referral to [phone] and will need video of pt walking and ect, because we have to have an assessment before can accept to [facility]. asked if they had any other [facility] close to hospital that would be willing to complete assessment " not sure will check into that"/pepper.
--- NOTE | 2018-03-23 14:44 | NUR ---
Patient participated in community reintegration on 03/23/18 with Physical Therapy. Refer to documentation by PT.
[2018-03-23 20:36] VITALS: BP 149/77
--- NOTE | 2018-03-24 01:13 | NUR ---
PT ASSESSMENT COMPLETED AND VSS. MEDS GIVEN ORDERED AND WELL TOLERATED. FALL PRECAUTIONS IN PLACE. STANDS UP WITH ASST/GAIT TO VOID IN URINAL. UNSTEADY. SLEEPING WELL. DENIES NEEDS. WILL CONTINUE TO MONITOR FREQUENTLY.
[2018-03-24 10:45] VITALS: BP 110/72
--- NOTE | 2018-03-24 10:47 | NUR ---
ASSUMED CARES AT 0700. PT AWAKE, ALERT AND ORIENTED *4 BUT IMPULSIVE. BED/CHAIR ALARM ON AT ALL TIMES, ROOM BY NURSE'S STATION, FREQUENT CHECKS. VITALS STABLE. C/O OF LEFT SHOULDER PAIN, VOLTAREN GEL APPLIED. PT CONTINUES TO HAVE LEFT SIDED WEAKNESS AND LEANS ON THE LEFT WITH TRANSFERS. DIARHEA THIS AM POST STOOL SOFTENORS, INCONTINENCE NOTED. PT GOT UP BY HIMSELF AND TRANSFERED TO THE BATHROOM, STAFF ENCOURAGED PT TO CALL FOR ASSISTANCE AND PT STATED THAT HE HAD TO GO FAST. PT UP WITH 1 PERSON MIN ASSISTANCE, PIVOT, AMBULATING THE HALLWAYS WITH THERAPY AND TOLERATED WELL. Q1H VISUAL CHECKS. CALL LIGHT WITHIN REACH. FALL PRECAUTIONS IN PLACE
--- NOTE | 2018-03-24 12:31 | NUR ---
CM VISITED WITH PT AND SON ON UNIT, RT REFERRAL [facility] IN [place] YESTERDAY, NUMBER FOR [facility] AMOS PROVIDED TO [facility] DIR OF THERAPY/ACUTE REHAB
--- NOTE | 2018-03-24 14:28 | NUR ---
DCP FAXED REFERRAL TO [facility]. SPOKE WITH JOSÉ IN ADM. AND SHE RECEIVED REFERRAL BUT IS REQUESTING A VIDEO OF PT. DOING THERAPY. DCP TO FOLLOW.
[2018-03-24 20:13] VITALS: BP 127/68
--- NOTE | 2018-03-25 00:39 | NUR ---
PT ALERT AND ORIENTED X 4. AMB TO BR WITH WALKER AND ASSIST X 2. VERY UNSTEADY GAIT. LEFT SIDED WEAKNESS. NO STOOLS SO FAR TONIGHT. PT DENIES PAIN OR DISCOMFORT. BED ALARM ON FOR SAFETY. PT APPEARS TO BE SLEEPING ON HOURLY ROUNDS.
[2018-03-25 04:42] LABS: HEMATOCRIT 38.5 % (42.0-52.0); HEMOGLOBIN 13.6 gm/dL (14.0-18.0); MCH 34.9 pg (26.0-34.0); MCHC 35.3 g/dL (28.0-37.0); MCV 99.1 fL (80.0-100.0); PLATELET COUNT 145 thou/uL (150-400); RBC 3.89 mil/uL (4.50-6.00); WBC 7.9 thou/uL (4.0-11.0)
[2018-03-25 04:48] LABS: CALCIUM 9.1 mg/dL (8.5-10.1); CREATININE 1.1 mg/dL (0.7-1.3); MAGNESIUM 1.7 mg/dL (1.8-2.4); POTASSIUM 3.4 mmol/L (3.5-5.1)
[2018-03-25 06:30] LABS: ABSOLUTE NEUTROPHILS 4.1 thou/uL (1.4-8.2); ATYPICAL LYMPHS 8 %
[2018-03-25 06:31] LABS: ANISOCYTOSIS SLIGHT; LARGE PLATELETS OCCASIONAL
[2018-03-25 07:30] VITALS: BP 134/86
--- NOTE | 2018-03-25 11:00 | NUR ---
ASSUMED CARES AT 0700. PT AWAKE, ALERT AND ORIENTED*4. DENIES PAIN AT THIS TIME. VITALS REMAIN STABLE. ABDOMEN SOFT AND ROUND, BS ACTIVE *4, NO LOOSE STOOLS TODAY. PT ATE ALL HIS BREAKFAST AND TOLERATED WELL. PT CONTINUES TO HAVE LEFT-SIDED WEAKNESS, TENDS TO LEAN ON THE LEFT WITH AMBULATION. UP WITH 1 PERSON MIN ASSIST, AMBULATED THE HALLWAY WITH THERAPY AND TOLERATED WELL. Q1H VISUAL CHECKS. CALL LIGHT WITHIN REACH. FALL PRECAUTIONS IN PLACE
--- NOTE | 2018-03-25 14:39 | NUR ---
cm received voice message from pt son stated " have video and [facility] is needing updated clinical for therapies."/son. cm spoke with son, inquired about voice message rt video, asked how did they get video when we where trying to work out details and correct pt safe/secure way to get facility assessment they needed. and he stated " sorry did not get anyone besides me in video, did not think this was not ok, not hippa, sorry again unbeknownst to cm and hospital staff, pt and son had friend video tape during activity today and pt friend released it to [facility] in [facility]. notified rehab dir. risk management notified as well per 5n team.
--- NOTE | 2018-03-25 16:48 | NUR ---
FAXED CLINICAL UPDATE TO [facility] LEFT MSG WITH ADM. THAT WE ANTICIPATE DC 04/04 WILL F/U WITH FACILITY ON TUESDAY 03/28.
[2018-03-25 19:48] VITALS: BP 117/50
--- NOTE | 2018-03-26 02:42 | NUR ---
assumed care at approx 1900 evening 03/25. pt alert and oriented x4, pleasant and cooperative talking on phone at change of shift. pt in good mood stating he felt like he was making progress with his therapy. pt took hs meds with water tolerating well. pt assisted with urinal at bedside. pt appears to be sleeping soundly with hourly rounding checks. bed alarm on and call light in reach. will continue to monitor.
[2018-03-26 07:52] VITALS: BP 106/94
--- NOTE | 2018-03-26 10:17 | NUR ---
ASSUMED CARES AT 0700. PT IN BED, AWAKE, ALERT AND ORIENTED*4. DENIES PAIN. VITALS REMAINED STABLE. PT CONTINUES TO GAIN STRENGTH ON THE LEFT SIDE, ABLE TO SIT ON THE SIDE OF BED WITHOUT FALLING OVER. TRANSFERS WITH 1 PERSON MIN ASSIST, SLIGHT LEANING ON THE LEFT WITH AMBULATION. FREQUENT VISUAL CHECKS. CALL LIGHT WITHIN REACH. FALL PRECAUTIONS IN PLACE
[2018-03-26 19:40] VITALS: BP 119/71
--- NOTE | 2018-03-27 01:24 | NUR ---
assumed care at approx 1900 evening 03/26. pt sitting in dining room at change of shift playing cards and visiting with fellow pts at table. pt alert and oriented x4, pleasant and cooperative. pt took hs meds with water tolerating well. pt up to bathroom/toilet with 1 assist before hs. pt appears to be sleeping soundly wth hourly rounding checks. bed alarm on and call light in reach. will continue to monitor.
--- NOTE | 2018-03-27 18:24 | NUR ---
ASSUMED CARE OF PT AT 0715. PT IS A&OX4. IS ON ROOM AIR. REPORTS MILD BACK & LEFT SHOULDER PAIN THAT IS BEING MANAGED WITH VOLTERAN GEL. PT IS UP WITH 1 ASSIST, GB, WALKER. PT HAS LEFT SIDED WEAKNESS. FALL PRECAUTIONS & HOURLY ROUNDING MAINTAINED. LABS & VITALS REVIEWED. PT HAS URINARY URGENCY. HAS ON BRIEF UNDER UNDERWEAR FOR COMFORT PER PT REQUEST. IS STABLE. PT IS TO DC TOMORROW. HAS ACCU CHECKS BID (BK & DINNER). PT IS STABLE. IS CURRENTLY UP IN CHAIR WATCHING TV. ALARM ON. CALL LIGHT WITHIN REACH. CALL LIGHT WITHIN REACH. WILL CONTINUE TO MONITOR.
[2018-03-27 19:12] VITALS: BP 108/78
--- NOTE | 2018-03-28 00:10 | NUR ---
PT ALERT AND ORIENTED X 4. AMB TO BR WITH WALKER AND ASSIST X 1. LEFT SIDED WEAKNESS. BP 108/78 AT HS. METOPROLOL HELD PER PARAMETERS. PT DENIES PAIN OR DISCOMFORT. BED ALARM ON FOR SAFETY. PT APPEARS TO BE SLEEPING ON HOURLY ROUNDS.
[2018-03-28 06:45] LABS: HEMATOCRIT 41.1 % (42.0-52.0); HEMOGLOBIN 13.9 gm/dL (14.0-18.0); MCHC 33.7 g/dL (28.0-37.0); MCV 100.9 fL (80.0-100.0); RBC 4.07 mil/uL (4.50-6.00); RDW 14.5 % (10.5-14.5)
[2018-03-28 07:17] LABS: MAGNESIUM 1.6 mg/dL (1.8-2.4); POTASSIUM 3.8 mmol/L (3.5-5.1)
[2018-03-28 07:40] VITALS: BP 123/52
--- NOTE | 2018-03-28 10:28 | NUR ---
ASSUMED CARES AT 0700. PT AWAKE, ALERT AND ORIENTED *4. DENIES PAIN. VITALS REMAIN STABLE. PT CONTINUES TO HAVE MILD LEFT-SIDED WEAKNESS. ATE ALL HIS MEAL. UP WITH 1 PERSON MIN ASSIST, AMBULATING WITH WALKER GAITBELT AND TOLERATED WELL. Q1H VISUAL CHECKS. CALL LIGHT WITHIN REACH. FALL PRECAUTIONS IN PLACE
--- NOTE | 2018-03-28 11:45 | NUR ---
Nutrition: Pt continues to eat well, 75-100% of meals on heart healthy diet. Noted outside food being brought in by family not c/w diet, touched base with family and encourage moderation. Pt will be discharged to facility next week. No weight since admit. BG controlled. Consider low risk.
[2018-03-28 19:25] VITALS: BP 116/74
--- NOTE | 2018-03-29 03:49 | NUR ---
CONTINUES TO GAIN STRENGTH, LEANS TO THE LEFT BUT WITH MORE CONTROL SINCE LAST WEEK. USES URINAL TO VOID AT BEDSIDE WITH STAFF SUPPORTING. DECLINES VOLTAREN GEL AND COLACE.
[2018-03-29 09:53] VITALS: BP 131/70
--- NOTE | 2018-03-29 10:41 | NUR ---
ASSUMED CARE AT 0700. PATIENT IS ALERT AND ORIENTEDX4. PATIENT HAS LEFT HEMIPARESIS. LUNGS ARE CLEAR. ABD IS SOFT WITH BSX4. PATIENT IS UP WITH ONE STAFF AND GAIT BELT AND WALKER TO BATHROOM. PATIENT ALSO VOIDS PER URINAL RASHI COLORED URINE. FALL AND SAFETY PROTOCOLS IN PLACE. C/O PAIN TO HIS BACK AND SHOULDER. VOLTARIN GEL APPLIED. CONTINUES TO PROGRESS TOWARDS D/C GOALS. WILL CONTINUE TO MONITER.
--- NOTE | 2018-03-29 12:51 | NUR ---
team meeting, recommendation, re team- new assisted living facility, with pt, ot, st, nursing, medication management. will need fww walker. dc on
[2018-03-29 19:23] VITALS: BP 142/77
--- NOTE | 2018-03-30 04:39 | NUR ---
STANDING FOR VOID USING URINAL AT BEDSIDE, CONTACT GUARD ASSIST. BM AT HS, DECLINES COLACE. MORE POSITIVE TODAY ABOUT GOING TO ASSISTED LIVING
[2018-03-30 08:38] VITALS: BP 140/82
--- NOTE | 2018-03-30 11:16 | NUR ---
ASSUMED CARE AT 0700. PATIENT IS ALERT AND ORIENTED X4. PATIENT HAS LEFT SIDED WEAKNESS. UP TO THE DINING ROOM WITH WALKER OR W/C FOR MEALS.. UP IN W/C FOR SPEECH. LUNGS ARE CLEAR. ABD IS SOFT WITH BSX4. PATIENT HAD BM TODAY. FALL AND SAFETY PROTOCOLS IN PLACE. DENIES PAIN AT THIS TIME. WILL CONTINUE TO MONITER.
[2018-03-30 19:15] VITALS: BP 139/62
--- NOTE | 2018-03-31 01:55 | NUR ---
assumed care at approx 1900 evening 03/30. pt in good mood stating he was pleased with his progress and looking forward to being discharged 04/04. pt alert and oriented x4, pleasant and cooperative. assisted pt to bathroom to void twice before hs. pt took hs meds with water tolerating well. pt appears to be sleeping soundly with hourly rounding checks. bed alarm on and call light in reach. will continue to monitor.
[2018-03-31 09:30] VITALS: BP 149/81
--- NOTE | 2018-03-31 16:10 | NUR ---
DISCHARGE PLANNING: MEDICATION LIST FAXED TO [facility] PER PT REQUEST. PT PROVIDED AUTH TO RELEASE THIS INFORMATION TO THE FACILITY. NOTED ON FAX COVER LETTER THAT THESE MEDS ARE SUBJECT TO CHANGE, THE MD HAS NOT GIVEN DC MEDICATION ORDERS OF YET.
--- NOTE | 2018-03-31 17:22 | NUR ---
ASSUMED CARES AT 0700. PT AWAKE, ALERT AND ORIENTED *4. DENIES PAIN. VITALS REMAIN STABLE. PT CONTINUES TO HAVE SOME MILD LEFT SIDED WEAKNESS, LEANING TO THE LEFT WITH TRANSFERS. UP WITH 1 PERSON MIN ASSIST, AMBULATED TO THE DINING AREA AND BACK AND TOLERATED WELL. ATE ALL HIS MEALS. Q1H VISUAL CHECKS. CALL LIGHT WITHIN REACH. FALL PRECAUTIONS IN PLACE
[2018-03-31 19:14] VITALS: BP 121/55
--- NOTE | 2018-04-01 02:07 | NUR ---
assumed care at approx 1900 evening 03/31. pt sitting up in recliner at change of shift resting and visiting with family at bedside. pt alert and oriented x4, appropriate and cooperative. pt took hs meds with water tolerating well. pt assisted up to bathroom to toilet to void before falling asleep. pt apppear to be sleeping soundly with hourly rounding checks. bed alarm on and call light in reach. will continue to monitor.
[2018-04-01 05:49] LABS: HEMATOCRIT 40.2 % (42.0-52.0); HEMOGLOBIN 13.5 gm/dL (14.0-18.0); MCH 33.9 pg (26.0-34.0); MCHC 33.6 g/dL (28.0-37.0); PLATELET COUNT 121 thou/uL (150-400); RBC 3.99 mil/uL (4.50-6.00); RDW 14.8 % (10.5-14.5); WBC 7.5 thou/uL (4.0-11.0)
[2018-04-01 06:01] LABS: CALCIUM 8.7 mg/dL (8.5-10.1); CREATININE 1.1 mg/dL (0.7-1.3); MAGNESIUM 1.9 mg/dL (1.8-2.4); POTASSIUM 3.9 mmol/L (3.5-5.1)
[2018-04-01 06:36] LABS: ABSOLUTE NEUTROPHILS 3.9 thou/uL (1.4-8.2); PLATELET ESTIMATE DECREASED; POLYCHROMASIA 1+
[2018-04-01 06:37] LABS: LARGE PLATELETS FEW
[2018-04-01 08:53] VITALS: BP 138/78
--- NOTE | 2018-04-01 09:52 | NUR ---
ASSUMED CARES AT 0700. PT AWAKE, ALERT AND ORIENTED *4. DENIES PAIN. VITALS STABLE. CONTINUES TO HAVE SOME LEFT-SIDED WEAKNESS, LEANING SLIGHTLY TO THE LEFT WITH AMBULATION. SKIN REMAINS INTACT. PT UP TO THE BATHROOM WITH 1 PERSON ASSIST, GAITBELT AND WALKER AND TOLERATES WELL. Q1H VISUAL CHECKS. CALL LIGHT WITHIN REACH. FALL PRECAUTIONS IN PLACE
[2018-04-01 19:24] VITALS: BP 126/65
--- NOTE | 2018-04-02 00:27 | NUR ---
PT ALERT AND ORIENTED X 4. AMB TO BR WITH WALKER AND ASSIST X 1. LEFT SIDED WEAKNESS. BP 126/65, HR 57 AT HS. METOPROLOL HELD PER PARAMETERS. PT DENIES PAIN OR DISCOMFORT. BED ALARM ON FOR SAFETY. PT APPEARS TO BE SLEEPING ON HOURLY ROUNDS.
[2018-04-02 07:15] VITALS: BP 135/56
--- NOTE | 2018-04-02 10:08 | NUR ---
ASSUMED CARE AT 0700. PATIENT IS ALERT AND ORIENTED X4. PATIENT HAS LEFT SIDED WEAKNESS. UP WITH ASSIST OF 1 STAFF AND GAIT BELT AND WALKER. LUNGS ARE CLEAR, ABD IS SOFT WITH BSX4. UP TO THE BATHROOM TO VOID AND HAVE BM. UP TO DINING ROOM PER W/C FOR MEALS. FALL AND SAFETY PROTOCOLS ARE IN PLACE. DENIES PAIN AT THIS TIME. CONTINUES TO PROGRESS TOWARDS D/C GOALS. WILL CONTINUE TO MONITER.
[2018-04-02 20:00] VITALS: BP 136/97
--- NOTE | 2018-04-03 03:54 | NUR ---
PT ALERT AND ORIENTED X 4. AMB TO BR WITH WALKER AND ASSIST X 1. LEFT SIDED WEAKNESS. PT DENIES PAIN OR DISCOMFORT. BED ALARM ON FOR SAFETY. PT APPEARS TO BE SLEEPING ON HOURLY ROUNDS.
[2018-04-03 09:03] VITALS: BP 131/82
--- NOTE | 2018-04-03 10:10 | NUR ---
ASSUMED CARES AT O700. PT AWAKE, A/O*4. DENIES PAIN. VITALS REMAIN STABLE. CONTINUES TO HAVE MILD LEFT-SIDED WEAKNESS. NO EDEMA. SKIN IS INTACT. UP WITH 1 PERSON SBA AND TOLERATED WELL. AMBULATING THE HALLWAY. Q1H VISUAL CHECKS. CALL LIGHT WITHIN REACH. FALL PRECAUTIONS IN PLACE
[2018-04-03 19:05] VITALS: BP 122/63
--- NOTE | 2018-04-04 03:12 | NUR ---
assumed care at approx 1900 evening 04/03. pt lying in bed with head of bed elevated at change of shift. pt alert and oriented x4, pleasant and cooperative. pt assisted up to toilet twice before falling asleep to void. pt has also used urinal in nighttime to void. pt appears to be sleeping soundly with hourly rounding checks. bed alarm on and call light in reach. will continue to monitor.
[2018-04-04 07:20] VITALS: BP 133/67
[2018-04-04] MEDS ORDERED: COZAAR 25 MG TA25 M1 PO ×2 (07:57→09:40)
[2018-04-04] MEDS ORDERED: MELATONIN5 M1 PO ×2 (07:57→09:40)
[2018-04-04] MEDS ORDERED: COLACE100 MG PO ×2 (07:57→09:40)
[2018-04-04] MEDS ORDERED: NEURONTIN 300300 M1 PO ×2 (07:57→09:40)
[2018-04-04] MEDS ORDERED: VOLTAREN GEL 1100 G2 TOP ×2 (07:57→09:40)
[2018-04-04] MEDS ORDERED: LOPRESSOR25 PO (07:57)
[2018-04-04] MEDS ORDERED: PROTONIX 20 MG20 M1 PO ×2 (07:57→09:40)
[2018-04-04] MEDS ORDERED: TYLENOL EXTRA500 MG PO ×2 (07:57→09:40)
[2018-04-04 09:01] VITALS: BP 133/67
--- NOTE | 2018-04-04 09:02 | NUR ---
ASSUMED CARES AT 0700. PT AWAKE, A/O*4. DENIES PAIN. VITALS REMAINED STABLE. SKIN REMAINS INTACT. PT UP WITH 1 PERSON MIN ASSIST, MILD LEFT SIDED WEAKNESS NOTED. PT AMBULATING WITH WALKER AND GAITBELT AND SBA, TOLERATES WELL. DISCHARGE TEACHING TO BE COMPLETED WITH PT AND DAUGHTER LATER TODAY. PT DISCHARGING TO SNF IN [place], [place]. Q1H VISUAL CHECKS. CALL LIGHT WITHIN REACH. FALL PRECAUTIONS IN PLACE
[2018-04-04] MEDS ORDERED: ELIQUIS5 MG PO (09:40)
[2018-04-04] MEDS ORDERED: LIPITOR 20 MG T20 M1 PO (09:40)
[2018-04-04] MEDS ORDERED: PACERONE 200 M200 M1 PO (09:40)
--- NOTE | 2018-04-04 10:27 | NUR ---
PT. DISCHARGING TODAY TO [facility]. FAXED DC ORDERS/SUMMARY TO FACILITY AND SPOKE WITH ADM. OCAMPO AND SHE RECEIVED DC ORDERS. FAMILY TO TRANSPORT PT. TO FACILITY.
--- NOTE | 2018-04-04 11:57 | NUR ---
pt dc to [facility], family to transport between 1200 and 1300. provider plus to deliver fww prior to dc today. bedside nurse to call report to [facility]. dc orders faxed to facility. updates clinical have been faxed to facility prior to dc.
== END 2018-04-04 12:59 | DRG 64 ==
LOC: ENTRNSPT 04-04 12:47 → EDTRNSPTSTS 04-04 12:50
PROVIDERS: Internal Medicine; Nurse Practitioner; Nurse Practitioner Family; ADMIT Physical Medicine & Rehabilitation
DX: I63.9 Cerebral infarction, unspecified (principal); I21.4 Non-ST elevation (NSTEMI) myocardial infarction; I69.354 Hemiplegia and hemiparesis following cerebral infarction affecting left non-dominant side; M62.82 Rhabdomyolysis; R41.4 Neurologic neglect syndrome; F05 Delirium due to known physiological condition; H53.462 Homonymous bilateral field defects, left side; F01.50 Vascular dementia, unspecified severity, without behavioral disturbance, psychotic disturbance, mood disturbance, and anxiety; F43.23 Adjustment disorder with mixed anxiety and depressed mood; M19.90 Unspecified osteoarthritis, unspecified site; I25.10 Atherosclerotic heart disease of native coronary artery without angina pectoris; I87.2 Venous insufficiency (chronic) (peripheral); I48.2 Chronic atrial fibrillation; R39.15 Urgency of urination; R13.10 Dysphagia, unspecified; E83.42 Hypomagnesemia; I10 Essential (primary) hypertension; E78.5 Hyperlipidemia, unspecified; I48.0 Paroxysmal atrial fibrillation; H40.9 Unspecified glaucoma; I87.8 Other specified disorders of veins; E11.51 Type 2 diabetes mellitus with diabetic peripheral angiopathy without gangrene; E87.6 Hypokalemia; I71.4 Abdominal aortic aneurysm, without rupture; Z85.46 Personal history of malignant neoplasm of prostate; Z90.49 Acquired absence of other specified parts of digestive tract; Z90.79 Acquired absence of other genital organ(s); Z79.01 Long term (current) use of anticoagulants; Z79.84 Long term (current) use of oral hypoglycemic drugs; Z79.899 Other long term (current) drug therapy
CPT/HCPCS: 10112